=== PATIENT | male | born 2000 | race Caucasian/White ===

== ENCOUNTER → 2023-06-17 | Outpatient (CLI) | payer BC ==
--- NOTE | 2023-06-17 16:25 | US ---
EXAMINATION TYPE: US scrotum with doppler. Grayscale and color Doppler Duplex imaging performed of t taya scrotum. DATE OF EXAM: 06/17/2023 COMPARISON: NONE CLINICAL INDICATION: Male, 22 years old with history of N50.9 DISORDER OF MALE GENITAL ORGANS, UNSPEC IFIED; 1 episode of left testicular pain couple months EXAM MEASUREMENTS: TESTICLES: Right Testicle: 3.8 x 2.2 x 3.3 cm Left Testicle: 4.9 x 2.5 x 3.3 cm EPIDIDYMIS HEAD: Right Epididymis: 1.8 cm Left Epididymis: 2.1 cm Doppler performed to assess for testicular vascularity; good bilateral color flow and waveforms are s een. There is no evidence of testicular torsion. Presence of hydroceles: no Presence of varicoceles: no IMPRESSION: No distinct abnormality seen.
== END | disposition home or self-care (01) ==
LOC: RADUSWWP 15:39
PROVIDERS: ATTEND Family Medicine
DX: N50.9 Disorder of male genital organs, unspecified (principal)
CPT/HCPCS: 76870; 93975